=== PATIENT | male | born 1945 | race Caucasian/White ===

== ENCOUNTER 2024-05-01 20:11 | Emergency (ER) | payer OTHER | END 2024-05-01 21:02 | disposition left against medical advice (07) | LOC: ERS 20:11 | DX: Z53.21 Procedure and treatment not carried out due to patient leaving prior to being seen by health care provider (principal) ==

== ENCOUNTER 2024-05-03 19:23 | Emergency (ER) | payer OTHER | END 2024-05-03 21:52 | disposition home or self-care (01) | LOC: ERS 19:23 | DX: T83.098A Other mechanical complication of other urinary catheter, initial encounter (principal); I10 Essential (primary) hypertension; Z79.899 Other long term (current) drug therapy; Z55.0 Illiteracy and low-level literacy | CPT/HCPCS: 51702; 99283 ==

== ENCOUNTER 2025-05-29 05:58 | Day surgery (SDC) | payer MEDICARE ==
[2025-05-18 11:14] VITALS: BMI 23.6
[2025-05-29] MEDS ORDERED: fentaNYL PF 100 MCG/2 ML SYRINGE ONE (06:46)
[2025-05-29] MEDS ORDERED: Lidocaine 1% PF 5 ML VIAL ONE (06:47)
[2025-05-29] MEDS ORDERED: Rocuronium Bromide 10 MG/ML (10ML VIAL) ONE (06:47)
[2025-05-29] MEDS ORDERED: PROPOFOL 20 ML ONE (06:47)
[2025-05-29] MEDS ORDERED: LevoFLOXacin D5W 500 mg (100 mL) BAG ONE (06:47)
[2025-05-29] MEDS ORDERED: Glycopyrrolate 0.2 MG/ML 5 ML SYRINGE ONE (08:07)
[2025-05-29] MEDS ORDERED: Ondansetron PF 4 MG/2 ML Vial ONE (08:19)
[2025-05-29] MEDS ORDERED: PHENYLEPHRINE-NS 100 MCG/ML 10 ML SYRINGE ONE (08:22)
[2025-05-29] MEDS ORDERED: SUGAMMADEX SODIUM 200 MG/2 ML VIAL ONE (08:37)
== END 2025-05-29 10:33 | disposition home or self-care (01) ==
LOC: SDC 05:58
PROVIDERS: ATTEND Urology
PROC: 0TB38ZX Excision of Right Kidney Pelvis, Via Natural or Artificial Opening Endoscopic, Diagnostic (ICD-10-PCS; principal; 2025-05-29)
PROC: 0T768DZ Dilation of Right Ureter with Intraluminal Device, Via Natural or Artificial Opening Endoscopic (ICD-10-PCS; 2025-05-29)
DX: C65.1 Malignant neoplasm of right renal pelvis (principal); N30.41 Irradiation cystitis with hematuria; N20.0 Calculus of kidney
CPT/HCPCS: 52332; 52354; C1726; C1758; C1769 ×2; C2617; J1100; J1956; J2405; J2704; Q9967; 88305

== ENCOUNTER 2025-06-25 10:54 | Outpatient (CLI) | payer MEDICARE | END 2025-06-25 10:55 | disposition home or self-care (01) | LOC: LABBT 10:54 | PROVIDERS: ATTEND Urology | DX: Z01.818 Encounter for other preprocedural examination (principal); C68.9 Malignant neoplasm of urinary organ, unspecified; C61 Malignant neoplasm of prostate; N30.41 Irradiation cystitis with hematuria; R31.0 Gross hematuria; N20.0 Calculus of kidney | CPT/HCPCS: 71046; 93005; 93010 ==

== ENCOUNTER 2025-06-25 11:00 | Inpatient (IN) | payer MEDICARE ==
[2025-06-25 11:16] VITALS: BMI 22.1
[2025-06-25 12:07] LABS: #Basophils 0.04 10x3/uL (0.0-0.2); #Eosinophils 0.32 10x3/uL (0.0-0.7); #Monocytes 0.99 10x3/uL (0.11-0.59); #Neutrophils 4.63 10x3/uL (1.40-6.50); %Basophils 0.5 % (0.0-1.0); %Eosinophils 4.3 % (0.0-10.0); %Lymphocytes 19.6 % (21.0-51.0); %Monocytes 13.2 % (0.0-10.0); %Neutrophils 61.7 % (42.0-75.0); Hematocrit 36.1 % (42.0-52.0); Hemoglobin 11.6 g/dL (14.0-18.0); Mean Corpuscular Hemoglobin 29.2 pg (27.0-31.0); Mean Corpuscular Volume 90.9 fL (78.0-98.0); Platelet Count 393 10x3/uL (130-400); Red Blood Cell (RBC) Count 3.97 mill/uL (4.70-6.10); White Blood Cell (WBC) Count 7.50 10x3/uL (4.8-10.8)
[2025-06-25 12:17] LABS: INR-International Normal Ratio 1.1; PTT 37.9 sec (22.9-36.1); Prothrombin Time 14.3 sec (12.0-14.7)
[2025-06-25 12:44] LABS: Anion Gap 15 mmol/L (10-20); BUN (Urea Nitrogen) 22 mg/dL (8.4-25.7); Calc. Creatinine Clearance 0 mL/min (70-130); Calcium 9.7 mg/dL (7.8-10.44); Carbon Dioxide 26 mmol/L (23-31); Chloride 99 mmol/L (98-107); Glucose 78 mg/dL (83-110); Potassium 4.6 mmol/L (3.5-5.1); Sodium 135 mmol/L (136-145)
[2025-06-25 13:38] LABS: Bacteria/HPF None Seen HPF (None Seen); Glucose, Urine (Dipstick) Normal (Negative); Leukocyte 500 Leu/uL (Negative); Protein, Urine (Dipstick) 200 mg/dL (Neg-Trace); RBC/HPF Greater than 50 HPF (0-3); Specific Gravity, Urine 1.022 (1.002-1.036); WBC/HPF Greater than 50 HPF (0-3); Yeast-Budding 1+ HPF (None Seen)
[2025-06-30] MEDS ORDERED: CEFAZOLIN 2 GM VIAL ONE (07:38)
[2025-06-30] MEDS ORDERED: LevoFLOXacin D5W 500 mg (100 mL) BAG ONE (07:38)
[2025-06-30] MEDS ORDERED: Lidocaine 1% PF 5 ML VIAL ONE (08:26)
[2025-06-30] MEDS ORDERED: PROPOFOL 20 ML ONE (08:27)
[2025-06-30] MEDS ORDERED: Rocuronium Bromide 10 MG/ML (10ML VIAL) ONE (08:28)
[2025-06-30] MEDS ORDERED: Lidocaine 1.5% w/Epi 1:200K 30 ML VIAL (Epid Use) ONE (08:50)
[2025-06-30] MEDS ORDERED: Ondansetron PF 4 MG/2 ML Vial IVP PRN (09:15)
[2025-06-30] MEDS ORDERED: fentaNYL PF 100 MCG/2 ML SYRINGE ONE ×2 (09:57→15:34)
[2025-06-30] MEDS ORDERED: Ropivacaine 0.2% HCl/PF 20 ML ONE (10:35)
[2025-06-30] MEDS ORDERED: PHENYLEPHRINE-NS 100 MCG/ML 10 ML SYRINGE ONE (11:12)
[2025-06-30] MEDS ORDERED: CEFAZOLIN 1 GM VIAL ONE (14:04)
[2025-06-30] MEDS ORDERED: Ondansetron PF 4 MG/2 ML Vial ONE (14:40)
[2025-06-30] MEDS ORDERED: SUGAMMADEX SODIUM 200 MG/2 ML VIAL ONE (14:47)
[2025-06-30] MEDS ORDERED: Mag-Al 1200 mg/1200 mg/30 ML UDCUP PO PRN (16:44)
[2025-06-30] MEDS ORDERED: diphenhydrAMINE 50 MG/ML VIAL IVP PRN (16:44)
[2025-06-30] MEDS ORDERED: Bisacodyl 10 MG SUPP PR PRN (16:44)
[2025-06-30 17:16] LABS: Hematocrit 30.5 % (42.0-52.0); Hemoglobin 9.9 g/dL (14.0-18.0); Mean Corpuscular Hemoglobin 29.0 pg (27.0-31.0); Mean Corpuscular Volume 89.4 fL (78.0-98.0); Platelet Count 387 10x3/uL (130-400); Red Blood Cell (RBC) Count 3.41 mill/uL (4.70-6.10); White Blood Cell (WBC) Count 10.81 10x3/uL (4.8-10.8)
[2025-06-30 17:31] LABS: Anion Gap 13 mmol/L (10-20); BUN (Urea Nitrogen) 22 mg/dL (8.4-25.7); Calc. Creatinine Clearance 62 mL/min (70-130); Calcium 8.7 mg/dL (7.8-10.44); Carbon Dioxide 22 mmol/L (23-31); Chloride 104 mmol/L (98-107); Glucose 145 mg/dL (83-110); Potassium 3.8 mmol/L (3.5-5.1); Sodium 135 mmol/L (136-145)
[2025-06-30] MEDS: Acetaminophen 325 MG TAB PO SCH (19:49)
[2025-06-30] MEDS ORDERED: Famotidine/PF 20 mg/2ml Vial SLOW IVP SCH (21:00)
[2025-06-30] MEDS: Famotidine 20 MG TAB PO SCH (21:53)
[2025-06-30] MEDS: ALPRAZolam 0.5 MG TAB PO PRN (21:54)
[2025-06-30] MEDS: Oxybutynin 5 MG TAB PO PRN (21:55)
[2025-06-30] MEDS: cefOXitin 1.5 GM, Admixture Fee 1 EACH in Sodium Chloride 0.9% 100 ML IVPB SCH (23:30)
[2025-07-01] MEDS: FENTANYL 500 MCG/10 ML VIAL 500 MCG, Bupivacaine 0.75% 10 ML in Sodium Chloride 0.9% 80 ML EPIDURAL SCH (05:49)
[2025-07-01 07:09] LABS: #Basophils Less than 0.03 10x3/uL (0.0-0.2); #Eosinophils Less than 0.03 10x3/uL (0.0-0.7); #Monocytes 1.04 10x3/uL (0.11-0.59); #Neutrophils 11.05 10x3/uL (1.40-6.50); %Basophils 0.1 % (0.0-1.0); %Eosinophils 0.0 % (0.0-10.0); %Lymphocytes 8.8 % (21.0-51.0); %Monocytes 7.8 % (0.0-10.0); %Neutrophils 82.7 % (42.0-75.0); Hematocrit 27.3 % (42.0-52.0); Hemoglobin 8.8 g/dL (14.0-18.0); Mean Corpuscular Hemoglobin 29.0 pg (27.0-31.0); Mean Corpuscular Volume 90.1 fL (78.0-98.0); Platelet Count 365 10x3/uL (130-400); Red Blood Cell (RBC) Count 3.03 mill/uL (4.70-6.10); White Blood Cell (WBC) Count 13.35 10x3/uL (4.8-10.8)
[2025-07-01 07:28] LABS: Anion Gap 12 mmol/L (10-20); BUN (Urea Nitrogen) 17 mg/dL (8.4-25.7); Calc. Creatinine Clearance 59 mL/min (70-130); Calcium 8.5 mg/dL (7.8-10.44); Carbon Dioxide 23 mmol/L (23-31); Chloride 102 mmol/L (98-107); Glucose 131 mg/dL (83-110); Potassium 4.2 mmol/L (3.5-5.1); Sodium 133 mmol/L (136-145)
[2025-07-01] MEDS: Potassium Bicarbonate/Cit Ac 20 MEQ TAB PO SCH (08:33)
[2025-07-01] MEDS ORDERED: Metoprolol Succinate XL 100 MG ER.TAB PO SCH (09:00)
[2025-07-01 15:28] VITALS: BMI 22.1
[2025-07-02 07:46] LABS: Anion Gap 13 mmol/L (10-20); BUN (Urea Nitrogen) 17 mg/dL (8.4-25.7); Calc. Creatinine Clearance 52 mL/min (70-130); Calcium 8.5 mg/dL (7.8-10.44); Carbon Dioxide 22 mmol/L (23-31); Chloride 103 mmol/L (98-107); Glucose 103 mg/dL (83-110); Potassium 4.1 mmol/L (3.5-5.1); Sodium 134 mmol/L (136-145)
[2025-07-02 07:55] LABS: #Basophils Less than 0.03 10x3/uL (0.0-0.2); #Eosinophils 0.27 10x3/uL (0.0-0.7); #Monocytes 0.99 10x3/uL (0.11-0.59); #Neutrophils 7.51 10x3/uL (1.40-6.50); %Basophils 0.2 % (0.0-1.0); %Eosinophils 2.5 % (0.0-10.0); %Lymphocytes 19.3 % (21.0-51.0); %Monocytes 9.0 % (0.0-10.0); %Neutrophils 68.5 % (42.0-75.0); Hematocrit 27.5 % (42.0-52.0); Hemoglobin 9.2 g/dL (14.0-18.0); Mean Corpuscular Hemoglobin 30.1 pg (27.0-31.0); Mean Corpuscular Volume 89.9 fL (78.0-98.0); Platelet Count 354 10x3/uL (130-400); Red Blood Cell (RBC) Count 3.06 mill/uL (4.70-6.10); White Blood Cell (WBC) Count 10.97 10x3/uL (4.8-10.8)
[2025-07-02] MEDS: oxyCODONE 5 MG TAB PO PRN (14:29)
[2025-07-02] MEDS: cefOXitin Sodium 1 GM in Sodium Chloride 0.9% 100 ML IVPB SCH (21:31)
[2025-07-02] MEDS: Hyoscyamine SL 0.125 MG TAB SL PRN (21:32)
[2025-07-03 06:10] LABS: #Basophils 0.04 10x3/uL (0.0-0.2); #Eosinophils 0.36 10x3/uL (0.0-0.7); #Monocytes 0.89 10x3/uL (0.11-0.59); #Neutrophils 5.64 10x3/uL (1.40-6.50); %Basophils 0.4 % (0.0-1.0); %Eosinophils 4.0 % (0.0-10.0); %Lymphocytes 22.3 % (21.0-51.0); %Monocytes 9.9 % (0.0-10.0); %Neutrophils 62.8 % (42.0-75.0); Hematocrit 31.1 % (42.0-52.0); Hemoglobin 10.2 g/dL (14.0-18.0); Mean Corpuscular Hemoglobin 29.0 pg (27.0-31.0); Mean Corpuscular Volume 88.4 fL (78.0-98.0); Platelet Count 441 10x3/uL (130-400); Red Blood Cell (RBC) Count 3.52 mill/uL (4.70-6.10); White Blood Cell (WBC) Count 8.98 10x3/uL (4.8-10.8)
[2025-07-03 06:38] LABS: Anion Gap 10 mmol/L (10-20); BUN (Urea Nitrogen) 15 mg/dL (8.4-25.7); Calc. Creatinine Clearance 54 mL/min (70-130); Calcium 9.1 mg/dL (7.8-10.44); Carbon Dioxide 27 mmol/L (23-31); Chloride 99 mmol/L (98-107); Glucose 95 mg/dL (83-110); Potassium 4.0 mmol/L (3.5-5.1); Sodium 132 mmol/L (136-145)
[2025-07-03] MEDS: hydrALAZINE 20 MG/ML VIAL SLOW IVP PRN (08:20)
[2025-07-03 11:05] VITALS: TEMP 97.9
[2025-07-03 11:06] VITALS: BP 127/82
== END 2025-07-03 14:35 | disposition home or self-care (01) | DRG 658 ==
LOC: UNDOADMIN 06-30 06:07 → SURG A 06-30 06:07
PROVIDERS: ADMIT Urology; ATTEND Urology
PROC: 0TT64ZZ Resection of Right Ureter, Percutaneous Endoscopic Approach (ICD-10-PCS; principal; 2025-06-30)
PROC: 0TT04ZZ Resection of Right Kidney, Percutaneous Endoscopic Approach (ICD-10-PCS; 2025-06-30)
PROC: 8E0W4CZ Robotic Assisted Procedure of Trunk Region, Percutaneous Endoscopic Approach (ICD-10-PCS; 2025-06-30)
PROC: 30233J1 Transfusion of Nonautologous Serum Albumin into Peripheral Vein, Percutaneous Approach (ICD-10-PCS; 2025-06-30)
PROC: 3E03329 Introduction of Other Anti-infective into Peripheral Vein, Percutaneous Approach (ICD-10-PCS; 2025-06-30)
DX: C65.1 Malignant neoplasm of right renal pelvis (principal); D64.89 Other specified anemias; I95.9 Hypotension, unspecified; Z79.899 Other long term (current) drug therapy
CPT/HCPCS: 36415; 71045; 80048; 81001; 85025; 85027; 85610; 85730; 86850; 86900; 86901; 87077; 87086; 87186; C1713; C1769; C1889; J0360; J0690; J0694; J1100; J1956; J2405; J2704; J2795; J3010; J3490; J7030; P9045; S2900

== ENCOUNTER 2025-07-13 08:58 | Outpatient (CLI) | payer MEDICARE ==
[2025-07-13] MEDS ORDERED: Iopamidol-370 76% 500 ML BOT (X-RAY USE) FS ONE (09:16)
== END 2025-07-13 08:59 | disposition home or self-care (01) ==
LOC: RAD 08:58
PROVIDERS: ATTEND Urology
DX: C68.9 Malignant neoplasm of urinary organ, unspecified (principal)
CPT/HCPCS: 51600; 74430; Q9967